=== PATIENT | female | born 1970 | race Caucasian/White ===

== ENCOUNTER 2022-01-31 09:03 | Day surgery (SDC) | payer BC ==
[2022-01-29 10:30] VITALS: BMI 27.4
[~2022-01-31 09:03] MED LIST: DEXAMETHASONE SOD PHOSPHATE 4 MG/ML 1 ML VIAL IV ONE; HYDROmorphone 0.5 MG/0.5 ML SYRINGE IVP PRN; LACTATED RINGERS 1,000 ML IV SCH; ONDANSETRON 4 MG/2 ML VIAL IVP ONE
[2022-01-31 09:58] VITALS: TEMP 97.2
[2022-01-31] MEDS ORDERED: PROPOFOL 10 MG/ML 20 ML VIAL IV ONE (10:31)
[2022-01-31] MEDS ORDERED: LIDOCAINE 2% INJ 20 MG/ML (2 ML VIAL) ONE (10:31)
--- NOTE | 2022-01-31 10:32 | P.GSHP ---
History of Present Illness H&P Date: 01/31/22 Chief Complaint: Screening colonoscopy Is a 51-year-old female presents today for screening colonoscopy. Patient denies a significant GI complaints. Past Medical History Additional Past Medical History / Comment(s): MIGRAINE HEADACHES History of Any Multi-Drug Resistant Organisms: None Reported Past Surgical History: Cardiac Ablation Additional Past Surgical History / Comment(s): EP STUDY WITH ABLATION Past Anesthesia/Blood Transfusion Reactions: No Reported Reaction Smoking Status: Current every day smoker - Past Family History Mother Family Medical History: Unable to Obtain Additional Family Medical History / Comment(s): ADOPTED - NO HISTORY Medications and Allergies Home Medications Medication Instructions Recorded Confirmed Type Ergocalciferol [Vitamin D2 (1250 1,250 mcg PO WE 01/29/22 01/31/22 History Mcg = 26379 Iu)] Escitalopram [Lexapro] 20 mg PO HS 01/29/22 01/31/22 History Allergies Allergy/AdvReac Type Severity Reaction Status Date / Time No Known Allergies Allergy Verified 01/31/22 09:43 Surgical - Exam Vital Signs Temp Pulse Resp BP Pulse Ox 97.2 F L 85 18 130/87 97 01/31/22 09:55 01/31/22 09:55 01/31/22 09:55 01/31/22 09:55 01/31/22 09:55 - General well developed, well nourished, no distress - Eyes PERRL - ENT normal pinna - Neck no masses - Respiratory normal expansion - Cardiovascular Rhythm: regular - Abdomen Abdomen: soft, non tender Assessment and Plan Assessment: We'll perform screening colonoscopy
--- NOTE | 2022-01-31 10:49 | P.OP ---
Date of Procedure: 01/31/22 Preoperative Diagnosis: Screening colonoscopy Postoperative Diagnosis: Mild diverticulosis Procedure(s) Performed: Colonoscopy Anesthesia: MAC Surgeon: Raoul Villatoro Pathology: none sent Condition: stable Disposition: PACU Description of Procedure: The patient's placed on the endoscopy table in the lateral position. She received IV sedation. Digital rectal exam was performed. This revealed no ebonized. The flexible colonoscope was then placed patient anus and passed throughout the entire colon. The ileocecal valve was visually is. The cecum, ascending and transverse colon appeared normal. In the descending and; there is mild diverticular changes. Scope was then brought back the rectum appeared normal. Scope withdrawn for patient.
[2022-01-31 11:25] VITALS: BP 123/66; PULSE 90; RESP 20
== END 2022-01-31 11:21 | disposition home or self-care (01) ==
LOC: ORWHC2ENDO 09:03
PROVIDERS: ATTEND Surgery
DX: Z12.11 Encounter for screening for malignant neoplasm of colon (principal); F17.210 Nicotine dependence, cigarettes, uncomplicated
CPT/HCPCS: 81025; 45378; J2704; J2001